=== PATIENT | female | born 1995 | race Caucasian/White ===

== ENCOUNTER 2016-07-29 13:03 | Emergency (ER) | payer OTHER ==
[2016-07-29 13:19] VITALS: RESP 18
[2016-07-29] MEDS ORDERED: Oxycodone/Acetaminophen 5/325 mg Tab PO STA (13:26)
[2016-07-29] MEDS ORDERED: Amoxicillin-Clav 875-125 mg Tab PO STA (13:26)
[2016-07-29] MEDS ORDERED: Amoxicillin-Clav 875-125 mg Tab PO ONE (13:35)
[2016-07-29] MEDS ORDERED: Oxycodone/Acetaminophen 5/325 mg Tab ONE (13:35)
[2016-07-29] MEDS ORDERED: Epinephrine /Lidocaine HCL 1:100,000/2% 30 ml INJ ONE (13:45)
--- NOTE | 2016-07-29 13:52 | C.PDOC ---
History Of Present Illness 21 yr old female presents to the ER with complaints of painful and swelling mass to the intergluteal cleft for the past 3 days. Patient denies fever, chills , nausea, vomiting, abdominal pain, diarrhea, back pain, weakness or numbness. Time Seen by Provider: 07/29/16 13:23 Chief Complaint (Nursing): Abnormal Skin Integrity History Per: Patient History/Exam Limitations: no limitations Onset/Duration Of Symptoms: Days (3 days) Current Symptoms Are (Timing): Still Present Past Medical History Reviewed: Historical Data, Nursing Documentation, Vital Signs Vital Signs: Last Vital Signs Temp 98.3 F 07/29/16 15:17 Pulse 93 H 07/29/16 15:17 Resp 18 07/29/16 15:17 BP 138/79 07/29/16 15:17 Pulse Ox 98 07/29/16 15:30 Family History: States: No Known Family Hx - Social History Hx Alcohol Use: No Hx Substance Use: No - Immunization History Hx Tetanus Toxoid Vaccination: No Hx Influenza Vaccination: No Hx Pneumococcal Vaccination: No Review Of Systems Except As Marked, All Systems Reviewed And Found Negative. Constitutional: Negative for: Fever, Chills Gastrointestinal: Negative for: Nausea, Vomiting, Abdominal Pain, Diarrhea Musculoskeletal: Negative for: Back Pain Skin: Positive for: Other (Painful, swelling intergluteal cleft) Neurological: Negative for: Weakness, Numbness Physical Exam - Physical Exam Appears: Well, Non-toxic, No Acute Distress Skin: Warm, Dry, No Rash, Other ((+) 5x5, round, bulging, erythema painfull and swollen mass to the intergluteal cleft) Head: Atraumatic, Normacephalic Oral Mucosa: Moist Neck: Normal, Normal ROM, Supple Chest: Symmetrical, No Tenderness Cardiovascular: Rhythm Regular, No Murmur Respiratory: Normal Breath Sounds, No Rales, No Rhonchi, No Stridor, No Wheezing Back: Normal Inspection Extremity: Normal ROM, No Swelling Neurological/Psych: Oriented x3, Normal Speech, Normal Motor ED Course And Treatment O2 Sat by Pulse Oximetry: 98 Progress Note: Spoke to surgical technology instructor regarding the patient, who spoke to Dr. Seals who recommends an I&D and to follow up in the office. - Incision & Drainage Of Abscess Anesthesia: Lidocaine 1% (20 cc around the wound ), With Epi Prep Used: Betadine Procedure: Incised W/Scalpel Blade#: (11), Drained Pus (15 cc of green, foul smelling ), Irrigated Cavity W/Saline, Probed To Break Up Loculations, Packed W/ Gauze (1 peice of 1inch ) Medical Decision Making Medical Decision Making: PLAN: * Augmentin PO * Percocet PO NOTE: pilonidal cyst, now drained approx 15 cc green/brown foul smelling puss d/w Surg Riley and Dr. Seals- ok to f/u in office in 2 days Disposition Doctor Will See Patient In The: Office Counseled Patient/Family Regarding: Studies Performed, Diagnosis - Disposition Disposition: HOME/ ROUTINE Disposition Time: 15:00 Condition: GOOD Additional Instructions: Leave packing (thin piece of gauze) in place, do not pull out. Ice packs to the area 1/2 hour per hour, nothing hot. Augmentin (antibiotic) twice a day for 7 days Percocet 1 tab every 4-6 hours as needed for pain Stool softners daily when taking Percocet- provokes constipation Pepcid 20 mg @ night -to prevent stomach irritation from the Augmentin Follow-up with Dr. Seals- Surgery Grade [employer] [phone] [id number] [facility] [id number] [facility] [address] Packing probably removed in 2-3 days. Prescriptions: Amoxicillin/Clavulanate [Augmentin 875 MG-125 MG] 1 tab PO BID #13 tab oxyCODONE/Acetaminophen [Percocet 5/325 mg Tab] 1 ea PO Q6H PRN #20 tab PRN Reason: Pain, Moderate (4-7) Instructions: Acute Wound Care (ED), Abscess (ED) - Clinical Impression Clinical Impression: Pilonidal cyst with abscess - Scribe Statement The provider has reviewed the documentation as recorded by the Cindy Shankar Provider Attestation: All medical record entries made by the Cindy were at my direction and personally dictated by me. I have reviewed the chart and agree that the record accurately reflects my personal performance of the history, physical exam, medical decision making, and the department course for this patient. I have also personally directed, reviewed, and agree with the discharge instructions and disposition.
[2016-07-29] MEDS ORDERED: Lidocaine 1% w Epi 1:100,000 Inj ONE (14:09)
[2016-07-29] MEDS ORDERED: Lidocaine 1% Inj (20ml) ONE (14:46)
--- NOTE | 2016-07-29 14:52 | C.PDOC ---
Time Seen by Provider: 07/29/16 13:23 Chief Complaint (Nursing): Abnormal Skin Integrity Past Medical History Vital Signs: Last Vital Signs Temp 9 F L 07/29/16 13:14 Pulse 104 H 07/29/16 13:14 Resp 18 07/29/16 13:14 BP 147/91 H 07/29/16 13:14 Pulse Ox 98 07/29/16 13:14 Family History: States: Unknown Family Hx - Social History Hx Alcohol Use: No Hx Substance Use: No - Immunization History Hx Tetanus Toxoid Vaccination: No Hx Influenza Vaccination: No Hx Pneumococcal Vaccination: No ED Course And Treatment O2 Sat by Pulse Oximetry: 98 Reevaluation Time: 14:52 Reassessment Condition: Improved Medical Decision Making Medical Decision Making: pilonidal cyst, now drained approx 15 cc green/brown foul smelling puss d/w Surg Riley and Dr. Corry oates to f/u in office in 2 days Disposition Doctor Will See Patient In The: Office Counseled Patient/Family Regarding: Studies Performed, Diagnosis - Disposition Disposition: HOME/ ROUTINE Disposition Time: 14:53 Condition: GOOD - Clinical Impression Clinical Impression: Pilonidal cyst with abscess
[2016-07-29 15:18] VITALS: BP 138/79; PULSE 93; TEMP 98.3
[2016-07-29 15:30] VITALS: O2SAT 98
== END 2016-07-29 15:19 | disposition home or self-care (01) ==
LOC: C.ER 13:03
DX: L05.01 Pilonidal cyst with abscess (principal)

== ENCOUNTER 2016-07-31 18:28 | Emergency (ER) | payer OTHER ==
[2016-07-31 18:47] VITALS: BP 116/78; PULSE 121; RESP 18; TEMP 98.5; O2SAT 100
--- NOTE | 2016-07-31 19:23 | C.PDOC ---
History Of Present Illness 21 y/o female presents to the ED requesting wound check. Pt had abscess drained 2 days ago and returns for packing removal. Pt denies pain, fever or any other complaints. Time Seen by Provider: 07/31/16 19:03 Chief Complaint (Nursing): Wound Check History/Exam Limitations: no limitations Onset/Duration Of Symptoms: Days Ago Current Symptoms Are (Timing): Better Severity: Mild Recent travel outside of the [place]: No Additional History Per: Family Past Medical History Reviewed: Historical Data, Nursing Documentation, Vital Signs Vital Signs: Last Vital Signs Temp 98.5 F 07/31/16 18:37 Pulse 121 H 07/31/16 18:37 Resp 18 07/31/16 19:25 BP 116/78 07/31/16 18:37 Pulse Ox 100 07/31/16 20:32 Family History: States: Unknown Family Hx - Social History Hx Alcohol Use: No Hx Substance Use: No - Immunization History Hx Tetanus Toxoid Vaccination: No Hx Influenza Vaccination: No Hx Pneumococcal Vaccination: No Review Of Systems Except As Marked, All Systems Reviewed And Found Negative. Constitutional: Negative for: Fever Skin: Positive for: Other (wound check of abscess) Physical Exam - Physical Exam Appears: Non-toxic, No Acute Distress Skin: Warm, Dry, No Rash, Other (1 cm wound to coccyx region, packing in place, no evidence of cellulitis) Head: Atraumatic, Normacephalic Ear(s): Bilateral: Normal Nose: Normal Oral Mucosa: Moist Back: No Vertebral Tenderness, No Paraspinal Tenderness Extremity: Bilateral: Atraumatic Neurological/Psych: Oriented x3, Normal Motor, Normal Sensation ED Course And Treatment O2 Sat by Pulse Oximetry: 100 (on room air) Pulse Ox Interpretation: Normal Medical Decision Making Medical Decision Making: Packing removed by me. Cleaned with sterile saline. Dressing applied. Disposition - Disposition Referrals: Mahogany Mcgrath MD [Staff Provider] - Disposition: HOME/ ROUTINE Disposition Time: 19:22 Condition: GOOD Additional Instructions: Continue to do warm soaks and take antibiotics until completed. Follow up with the medical doctor within 1-2 days. Return of worsened. Instructions: Abscess (ED) - Clinical Impression Clinical Impression: Wound check, abscess - PA / DIRECTOR OF VITAL STATISTICS / Resident Statement / has reviewed & agrees with the documentation as recorded. - Scribe Statement The provider has reviewed the documentation as recorded by the Cindy Agudelo All medical record entries made by the Cindy were at my direction and personally dictated by me. I have reviewed the chart and agree that the record accurately reflects my personal performance of the history, physical exam, medical decision making, and the department course for this patient. I have also personally directed, reviewed, and agree with the discharge instructions and disposition.
== END 2016-07-31 19:27 | disposition home or self-care (01) ==
LOC: C.ER 18:28
DX: Z48.00 Encounter for change or removal of nonsurgical wound dressing (principal)

== ENCOUNTER 2016-08-14 20:32 | Emergency (ER) | payer OTHER ==
[2016-08-14] MEDS ORDERED: Sodium Chloride 0.9% 1,000 ML IV ONE (21:17)
--- NOTE | 2016-08-14 21:23 | C.PDOC ---
History Of Present Illness A 21 year old female presents to the ER c/o epigastric pain since yesterday. Patient notes nausea and vomiting but denies , fever, chills, diarrhea , trauma to the area, vaginal bleeding or discharge, or any other complaints. Chief Complaint (Nursing): Abdominal Pain History Per: Patient History/Exam Limitations: no limitations Onset/Duration Of Symptoms: Days Current Symptoms Are (Timing): Still Present Severity: Mild Location Of Pain/Discomfort: Epigastric Quality Of Discomfort: "Pain" Associated Symptoms: Nausea, Vomiting. denies: Diarrhea Additional History Per: Patient Past Medical History Reviewed: Historical Data, Nursing Documentation, Vital Signs Vital Signs: Last Vital Signs Temp 97.5 F L 08/14/16 23:13 Pulse 52 L 08/14/16 23:13 Resp 18 08/14/16 23:13 BP 121/80 08/14/16 23:13 Pulse Ox 100 08/14/16 23:13 Family History: States: Unknown Family Hx - Social History Hx Alcohol Use: No Hx Substance Use: No - Immunization History Hx Tetanus Toxoid Vaccination: No Hx Influenza Vaccination: No Hx Pneumococcal Vaccination: No Review Of Systems Except As Marked, All Systems Reviewed And Found Negative. Constitutional: Negative for: Fever, Chills, Other (Trauma to the area, .) Gastrointestinal: Positive for: Nausea, Vomiting, Abdominal Pain (Epigastric pain) Genitourinary: Negative for: Vaginal Discharge, Vaginal Bleeding Physical Exam - Physical Exam Appears: Non-toxic, No Acute Distress Skin: Warm, Dry Head: Atraumatic, Normacephalic Eye(s): bilateral: Normal Inspection, EOMI Cardiovascular: Rhythm Regular, No Murmur Respiratory: Normal Breath Sounds, No Rales, No Rhonchi, No Wheezing Gastrointestinal/Abdominal: Soft, Tenderness (Epigastric tenderness. ), No Guarding, No Rebound, Other (No LQ tenderness) Neurological/Psych: Oriented x3, Normal Speech, Normal Cognition ED Course And Treatment - Laboratory Results Result Diagrams: 08/14/16 21:21 08/14/16 21:21 O2 Sat by Pulse Oximetry: 99 (RA) Pulse Ox Interpretation: Normal Medical Decision Making Medical Decision Making: Plans: -CT abd/Pel -Pepcoid -Omnipaque -Toradol -Zofran -IV fluids -Reassess and disposition Patient is resting comfortably, abdomen remains soft, and patient is tolerating PO. Patient feels comfortable going home. Patient will be discharged home. Disposition Counseled Patient/Family Regarding: Diagnosis - Disposition Referrals: [facility] [Outside] Disposition: HOME/ ROUTINE Disposition Time: 02:17 Condition: STABLE Prescriptions: Famotidine [Pepcid] 20 mg PO BID #20 tab Sucralfate [Carafate] 1 gm PO BID #14 tab Instructions: Gastritis (GEN), Diet for Ulcers and Gastritis (ED), Abdominal Pain (ED) - POA Present On Arrival: None - Clinical Impression Clinical Impression: Abdominal pain, Gastritis - Scribe Statement The provider has reviewed the documentation as recorded by the Scribe Antonia anne All medical record entries made by the Cristelaibe were at my direction and personally dictated by me. I have reviewed the chart and agree that the record accurately reflects my personal performance of the history, physical exam, medical decision making, and the department course for this patient. I have also personally directed, reviewed, and agree with the discharge instructions and disposition.
[2016-08-14 21:24] LABS: BASO # 0.1 K/uL (0.0-0.2); BASO % 0.5 % (0.0-2.0); EOS # 0.3 K/uL (0.0-0.7); EOS % 2.7 % (0.0-4.0); HEMATOCRIT 38.7 % (34.0-47.0); LYMPH # 1.7 K/uL (1.0-4.3); LYMPH % 13.8 % (20.0-40.0); MEAN CELL VOLUME 87.6 fL (81.0-99.0); MEAN CORPUSCULAR HEMOGLOBIN 28.8 pg (27.0-31.0); MEAN CORPUSCULAR HGB CONC 32.9 g/dL (33.0-37.0); MEAN PLATELET VOLUME 7.9 fL (7.2-11.7); MONO # 0.9 K/uL (0.0-0.8); MONO % 7.1 % (0.0-10.0); RED CELL DISTRIBUTION WIDTH 12.6 % (11.5-14.5); WHITE BLOOD COUNT 12.1 K/uL (4.8-10.8)
[2016-08-14] MEDS ORDERED: Sodium Chloride 0.9% 1,000 ML ONE (21:29)
[2016-08-14 21:44] LABS: CHLORIDE 102 mmol/L (98-107); POTASSIUM 3.8 mmol/L (3.6-5.2); SODIUM 140 mmol/L (132-148)
[2016-08-14 21:46] LABS: RBC URINE 62 /hpf (0-3); URINE BACTERIA RARE (<OCC); URINE BILIRUBIN NEGATIVE (NEGATIVE); URINE BLOOD 2+ (NEGATIVE); URINE COLOR Yellow (YELLOW); URINE GLUCOSE (UA) NORMAL (Normal); URINE KETONE NEGATIVE (NEGATIVE); URINE LEUKOCYTE ESTERASE NEG Leu/uL (Negative); URINE PROTEIN NEGATIVE (NEGATIVE); URINE UROBILINOGEN NORMAL mg/dL (0.2-1.0); WBC URINE 1 /hpf (0-5)
[2016-08-14 21:47] LABS: ALB/GLOB RATIO 1.2 (1.0-2.1); ALKALINE PHOSPHATASE 75 U/L (38-126); ALT/SGPT 34 U/L (9-52); AST/SGOT 58 U/L (14-36); BILIRUBIN,TOTAL 0.6 mg/dL (0.2-1.3); BLOOD UREA NITROGEN 10 mg/dL (7-17); CARBON DIOXIDE 24 mmol/L (22-30); GFR AFRICAN-AMERICAN > 60; GLUCOSE,RANDOM 100 mg/dL (65-105); TOTAL PROTEIN 8.1 g/dL (6.3-8.3)
[2016-08-14] MEDS ORDERED: Iohexol 240 (50 ml) PO ONE (22:12)
[2016-08-14] MEDS ORDERED: Iohexol 240 (50 ml) ONE (22:22)
[2016-08-14] MEDS ORDERED: Iodixanol 320 MG/ML 100 ML BOTTLE IV ONE (22:37)
[2016-08-14] MEDS ORDERED: Sucralfate 1 gm/10 ml Oral Susp UD PO STA (23:17)
[2016-08-14] MEDS ORDERED: Sucralfate 1 gm/10 ml Oral Susp UD ONE (23:19)
[2016-08-15 02:20] VITALS: O2SAT 99
[2016-08-15 02:50] VITALS: BP 102/65; PULSE 68; RESP 16; TEMP 97.8
--- NOTE | 2016-08-15 10:40 | CT ---
PROCEDURE: CT Abdomen and Pelvis with contrast HISTORY: abd pain COMPARISON: None. TECHNIQUE: Contrast dose: 100 mL Visipaque 320. Axial and reformatted coronal and sagittal CT images of the abdomen and pelvis were obtained after IV and oral contrast administration. Radiation dose: Total exam DLP = 593.12 mGy-cm. This CT exam was performed using one or more of the following dose reduction techniques: Automated exposure control, adjustment of the mA and/or kV according to patient size, and/or use of iterative reconstruction technique. FINDINGS: LOWER THORAX: Unremarkable. LIVER: Unremarkable. No gross lesion or ductal dilatation. GALLBLADDER AND BILE DUCTS: Unremarkable. PANCREAS: Unremarkable. No gross lesion or ductal dilatation. SPLEEN: Unremarkable. ADRENALS: Unremarkable. No mass. KIDNEYS AND URETERS: Unremarkable. No hydronephrosis. No solid mass. VASCULATURE: Unremarkable. No aortic aneurysm. BOWEL: Unremarkable. No obstruction. No gross mural thickening. APPENDIX: No evidence of appendicitis. PERITONEUM: Unremarkable. No free fluid. No free air. LYMPH NODES: Mildly enlarged mesenteric lymph nodes seen at the right mid and lower abdomen suspicious for mesenteric adenitis. BLADDER: Unremarkable. REPRODUCTIVE: Unremarkable. BONES: No acute fracture. OTHER FINDINGS: None. IMPRESSION: Mildly enlarged mesenteric lymph nodes seen at the right mid and lower abdomen suspicious for mesenteric adenitis. Otherwise no evidence of acute pathology in the pelvis. Preliminary report was submitted by [facility].
== END 2016-08-15 02:50 | disposition home or self-care (01) ==
LOC: C.ER 20:32
DX: K29.71 Gastritis, unspecified, with bleeding (principal)
CPT/HCPCS: 74177; 80053; 81001; 83690; 84703; 85025; 96374; 96375; 99285; J1885; J2405; J7040; Q9966; Q9967

== ENCOUNTER 2017-05-14 02:38 | Emergency (ER) | payer OTHER ==
--- NOTE | 2017-05-14 04:09 | C.PDOC ---
History Of Present Illness Patient is a 22 y/o female who presents to the ED with complaints of fever, cough, and congestion for the last 4 days. Reports to have seen PMD and was given cough medicine and antibiotics but has not filled them yet. No other physical complaints at this time. Time Seen by Provider: 05/14/17 04:08 Chief Complaint (Nursing): Flu-like Symptoms History Per: Patient History/Exam Limitations: no limitations Onset/Duration Of Symptoms: Days (4 days) Current Symptoms Are (Timing): Still Present Associated Symptoms: Fever (subjective), Cough, Nasal Congestion Severity: Mild Pain Scale Rating Of: 2 Recent travel outside of the [place]: No Past Medical History Reviewed: Historical Data, Nursing Documentation, Vital Signs Vital Signs: Last Vital Signs Temp 98.9 F 05/14/17 04:48 Pulse 87 05/14/17 04:48 Resp 18 05/14/17 04:48 BP 114/78 05/14/17 04:48 Pulse Ox 95 05/14/17 04:48 - Medical History PMH: No Chronic Diseases Denies: Chronic Kidney Disease Surgical History: No Surg Hx Family History: States: No Known Family Hx - Social History Hx Tobacco Use: No Hx Alcohol Use: No Hx Substance Use: No - Immunization History Hx Tetanus Toxoid Vaccination: No Hx Influenza Vaccination: No Hx Pneumococcal Vaccination: No Review Of Systems Constitutional: Positive for: Fever (subjective) ENT: Positive for: Nose Congestion Respiratory: Positive for: Cough Skin: Negative for: Rash Neurological: Negative for: Weakness Psych: Negative for: Anxiety Physical Exam - Physical Exam Appears: No Acute Distress Skin: Warm, Dry Head: Normacephalic Ear(s): Bilateral: Normal Nose: No Discharge Oral Mucosa: Moist Throat: No Erythema, Other (oropharynx clear) Cardiovascular: Rhythm Regular, No Murmur Respiratory: Normal Breath Sounds, No Rales, No Rhonchi, No Wheezing Gastrointestinal/Abdominal: Soft, No Tenderness Neurological/Psych: Oriented x3, Normal Speech, Normal Cognition ED Course And Treatment O2 Sat by Pulse Oximetry: 98 Pulse Ox Interpretation: Normal Progress Note: Motrin and Tamiflu administered. Disposition Counseled Patient/Family Regarding: Studies Performed, Diagnosis, Need For Followup, Rx Given - Disposition Disposition: HOME/ ROUTINE Disposition Time: 04:09 Condition: FAIR Additional Instructions: Please take medication until finished. Also alternate tylenol with motrin every 4 hours for fever and body aches Prescriptions: Oseltamivir Phosphate [Tamiflu] 75 mg PO BID #10 capsule Instructions: Viral Syndrome (ED) Forms: [facility] (Tunisian) - Clinical Impression Clinical Impression: Viral syndrome - Scribe Statement The provider has reviewed the documentation as recorded by the Scribe Christy Fajardo All medical record entries made by the Scribe were at my direction and personally dictated by me. I have reviewed the chart and agree that the record accurately reflects my personal performance of the history, physical exam, medical decision making, and the department course for this patient. I have also personally directed, reviewed, and agree with the discharge instructions and disposition.
[2017-05-14 04:49] VITALS: BP 114/78; PULSE 87; RESP 18; TEMP 98.9
[2017-05-14 06:58] VITALS: O2SAT 98
== END 2017-05-14 04:49 | disposition home or self-care (01) ==
LOC: C.ER 02:38
DX: B34.9 Viral infection, unspecified (principal)